=== PATIENT | female | born 1970 | race Two or more races ===

== ENCOUNTER → 2016-12-27 | Outpatient (CLI) | payer OTHER ==
--- NOTE | ~2016-12-27 | CT130 ---
[facility] A Service of [facility] & [facility] RADIOLOGY TEXT RESULTS PATIENT: KEVIN SKAGGS LOCATION: [facility] : [birth year] UNIT #: [id number] AGE: [address]: MANUELA MORRIS APRN SEX: F ORDER DR: [id number] [facility]. [place], [place] [address] [id number] O MR#: [id number] Acc #: [id number] NAME: KEVIN SKAGGS : 1970 SEX: F STUDY DATE/TIME: 12/27/2016 15:15 UNIT: [facility] ROOM: STUDY DESCRIPTION: CT Upper Ext Rt Wo Cont Attending Physician: Manuela Morris Ordering Physician: Manuela Morris A.P.R.N. Primary Care Physician: Alicia Boogie M.D. MEDICAL IMAGING REPORT This report is preliminary unless electronic signature is present EXAM CT right shoulder HISTORY 46-year-old female complains of anterior and posterior chest and right shoulder pain for 1 year, no history of trauma. TECHNIQUE Axial images were performed through the right shoulder without contrast. Multiplanar reconstructed images were reviewed at a workstation. This CT exam was performed with one or more of the following radiation dose reduction techniques: automatic exposure control, adjustment of mA and/or kV according to patient size, and iterative reconstruction. FINDINGS No fracture or dislocation. Minimal AC joint arthropathy with some capsular hypertrophy. Glenohumeral joint unremarkable. No definite joint effusion. The rotator cuff musculature appears grossly intact without evidence of rotator cuff tear. Please note non arthrographic MR limited for evaluation of rotator cuff pathology. Visualization of the labrum, articular cartilage and long tendon of the biceps also limited without intraarticular contrast but no gross pathology identified. Deltoid extraarticular soft tissues appear normal. IMPRESSION 1. Minimal AC joint arthropathy. 2. No internal pathology of the shoulder identified on this non-arthrographic CT. Please note noncontrast or non-arthrographic CT is limited for evaluation of internal shoulder pathology. If clinical symptoms persist further evaluation with MRI is recommended as the initial study if the patient cannot undergo a STS. [facility] A Service of [facility] & [facility] RADIOLOGY TEXT RESULTS PATIENT: [facility]AG[id number] [birth year] UN[facility] #: [id number] AGE: [address]: MANUELA MORRIS APRN SEX: F ORDER DR: MRI scan, CT arthrography, can be performed as a secondary exam. Dictated by... Huy Prince M.D. THIS IS AN ELECTRONICALLY VERIFIED REPORT Huy Prince M.D. at 12/28/2016 4:59 PM VANCE/chetna TD: 12/28/2016 11:25 JOB #: [id number] MEDICAL IMAGING REPORT COPY
--- NOTE | ~2016-12-27 | CT57 ---
[facility] A Service [facility] RADIOLOGY TEXT RESULTS PATIENT: KEVIN SKAGGS LOCATION: [facility] : 66 UNIT #: [id number] AGE: [address]: MANUELA MORRIS APRN SEX: F ORDER DR: [id number] [address] [address] [id number] O MR#: [id number] Acc #: [id number] NAME: KEVIN SKAGGS : 1970 SEX: F STUDY DATE/TIME: 12/27/2016 15:12 UNIT: [facility] ROOM: STUDY DESCRIPTION: CT Chest Wo Cont Attending Physician: Manuela Morris Ordering Physician: Manuela Morris A.P.R.N. Primary Care Physician: Alicia Boogie M.D. MEDICAL IMAGING REPORT This report is preliminary unless electronic signature is present EXAM CT chest without contrast INDICATIONS 46-year-old female with anterior and posterior chest pain for one year. TECHNIQUE CT scan of the chest was performed without contrast. Coronal and sagittal reformatted images were obtained. There are no available studies for comparison. The CT exam was performed with one or more of the following radiation dose reduction techniques: automatic exposure control, adjustment of mA and/or kV according to patient size, and iterative reconstruction. FINDINGS There is a 5 mm nodule in the right upper lobe on image 31. There is a tiny 2-3 mm micronodule in the left upper lobe on image 29. There is no airspace consolidation. No lymphadenopathy or pleural effusion. Limited imaging of the upper abdomen is unremarkable. The bone windows are unremarkable. IMPRESSION 1. There are two nodules in the lungs, the largest measuring 5 mm. Based on the updated 2017 Fleischner Society criteria these nodules do not require follow up unless the patient has risk factors for lung cancer such as smoking. If the patient does have risk factors then followup should be performed in one year. 2. The remainder of the study is normal. Dictated by... [facility] A Service of [facility] RADIOLOGY TEXT RESULTS PATIENT: KEVIN SKAGGS [facility] #: [id number] : 66 UNIT #: [id number] AGE: [address]: MANUELA MORRIS APRN SEX: F ORDER DR: Chip Prince M.D. THIS IS AN ELECTRONICALLY VERIFIED REPORT Chip Prince M.D. at 12/28/2016 4:18 PM KULDEEP/bee TD: 12/28/2016 13:23 JOB #: [id number] MEDICAL IMAGING REPORT COPY
== END | disposition home or self-care (01) ==
LOC: CCAT 14:03
DX: M25.511 Pain in right shoulder (principal); R07.9 Chest pain, unspecified; R91.8 Other nonspecific abnormal finding of lung field; R93.7 Abnormal findings on diagnostic imaging of other parts of musculoskeletal system
CPT/HCPCS: 71250; 73200